=== PATIENT | female | born 1985 | race African-American/Black ===

== ENCOUNTER → 2016-08-07 | Outpatient (CLI) | payer OTHER ==
[~2016-08-07] MED LIST: MEGESTROL ACETA20 MG PO; METOPROLOL SUCC25 MG PO; METOPROLOL TART25 MG PO; PROZAC10 MG PO; PROZAC20 MG PO; XANAX0.25 MG PO; XANAX0.5 MG PO
== END | disposition home or self-care (01) ==
LOC: CDC 15:19
DX: Z01.810 Encounter for preprocedural cardiovascular examination (principal); I10 Essential (primary) hypertension
CPT/HCPCS: 93000

== ENCOUNTER 2016-08-13 09:48 | Day surgery (SDC) | payer OTHER ==
[~2016-08-13] VITALS: Ht 160 cm; Wt 83.0 kg
[2016-08-13 10:21] VITALS: BP 122/72
[2016-08-13 14:06] VITALS: BP 121/65
[2016-08-13 14:57] VITALS: BP 126/60
[2016-08-14 13:12] LABS: INTERNAL CONTROL VALID? YES
== END 2016-08-13 15:00 | disposition home or self-care (01) ==
LOC: SDC 09:48
PROVIDERS: Obstetrics & Gynecology
DX: N92.1 Excessive and frequent menstruation with irregular cycle (principal); D25.0 Submucous leiomyoma of uterus; N84.0 Polyp of corpus uteri; D50.0 Iron deficiency anemia secondary to blood loss (chronic); N94.6 Dysmenorrhea, unspecified; E28.2 Polycystic ovarian syndrome; N96 Recurrent pregnancy loss; Z80.3 Family history of malignant neoplasm of breast; F17.200 Nicotine dependence, unspecified, uncomplicated; Z88.0 Allergy status to penicillin; Z88.8 Allergy status to other drugs, medicaments and biological substances
CPT/HCPCS: 84703; 88305; J0690; J1100; J1170; J1885; J2175; J2250; J2405; J3010

== ENCOUNTER 2017-08-24 15:13 | Emergency (ER) | payer OTHER ==
[~2017-08-24] VITALS: Ht 160 cm; Wt 84.0 kg
[2017-08-24 16:39] LABS: APPEARANCE CLEAR ((CLEAR)); BILIRUBIN NEGATIVE; BLOOD NEGATIVE; COLOR YELLOW ((YELLOW)); GLUCOSE (STRIP) NEGATIVE; KETONES NEGATIVE; LEUKOCYTES NEGATIVE; NITRITE NEGATIVE; PROTEIN (STRIP) NEGATIVE; UCUL ADDED? NO; UROBILINOGEN 0.2 MG/DL (0.2-1.0)
[2017-08-24 16:44] LABS: CHLORIDE 107 mEq/L (99-109); POTASSIUM 4.5 mEq/L (3.7-5.4); SODIUM 137 mEq/L (136-147)
[2017-08-24 16:45] LABS: HEMATOCRIT 32.2 % (36.0-46.0); HEMOGLOBIN 9.2 G/DL (11.9-15.5); MCH 17.9 PG (29.0-34.0); MCHC 28.6 G/DL (30.0-36.0); MCV 62.5 FL (83-99); PLATELET COUNT 396 K/uL (156-360); RBC DIS.WIDTH-CV 19.5 % (11.8-14.6); RBC DIS.WIDTH-SD 40.8 % (39-53); RED BLOOD COUNT 5.15 M/uL (3.80-5.20); WHITE BLOOD COUNT 6.2 K/uL (4.1-10.2)
[2017-08-24 16:46] LABS: GLUCOSE 94 mg/dL (70-99)
[2017-08-24 16:50] LABS: CREATININE 0.7 mg/dL (0.6-1.3); GFR ESTIMATE (CALCULATED) > 59 mL/min/; UREA NITROGEN (BUN) 11 mg/dL (9-23)
[2017-08-24 16:58] LABS: QUANTITATIVE HCG < 4.0 MIU/ML
[2017-08-24 17:43] VITALS: BP 129/93
== END 2017-08-24 17:44 | disposition left against medical advice (07) ==
LOC: EME 15:13
PROVIDERS: Physician Assistant
DX: R10.9 Unspecified abdominal pain (principal); F17.200 Nicotine dependence, unspecified, uncomplicated
CPT/HCPCS: 80048; 81003; 84702; 85027; 99281; 99284

== ENCOUNTER 2017-12-22 13:27 | Emergency (ER) | payer OTHER ==
[~2017-12-22] VITALS: Ht 167.6 cm; Wt 86.0 kg
[2017-12-22 14:13] LABS: CHLORIDE 109 mEq/L (99-109); POTASSIUM 4.3 mEq/L (3.7-5.4); SODIUM 139 mEq/L (136-147)
[2017-12-22 14:15] LABS: GLUCOSE 94 mg/dL (70-99)
[2017-12-22 14:19] LABS: CREATININE 0.9 mg/dL (0.6-1.3); GFR ESTIMATE (CALCULATED) > 59 mL/min/; UREA NITROGEN (BUN) 10 mg/dL (9-23)
[2017-12-22 14:21] LABS: LIPASE 41 U/L (1.0-51.0)
[2017-12-22 14:23] LABS: HEMATOCRIT 32.9 % (36.0-46.0); HEMOGLOBIN 9.3 G/DL (11.9-15.5); MCH 17.3 PG (29.0-34.0); MCHC 28.3 G/DL (30.0-36.0); MCV 61.3 FL (83-99); PLATELET COUNT 374 K/uL (156-360); RBC DIS.WIDTH-CV 19.8 % (11.8-14.6); RBC DIS.WIDTH-SD 40.8 % (39-53); RED BLOOD COUNT 5.37 M/uL (3.80-5.20); WHITE BLOOD COUNT 4.1 K/uL (4.1-10.2)
[2017-12-22 14:28] LABS: QUANTITATIVE HCG < 4.0 MIU/ML
[2017-12-22 14:50] LABS: APPEARANCE CLEAR ((CLEAR)); BILIRUBIN NEGATIVE; BLOOD NEGATIVE; COLOR YELLOW ((YELLOW)); GLUCOSE (STRIP) NEGATIVE; KETONES NEGATIVE; LEUKOCYTES NEGATIVE; NITRITE NEGATIVE; PROTEIN (STRIP) NEGATIVE; SPECIFIC GRAVITY 1.021 (1.000-1.030)
[2017-12-22] MEDS ORDERED: ZOFRAN ODT4 MG PO (16:38)
[2017-12-22] MEDS ORDERED: BENTYL10 MG PO (16:38)
[2017-12-22 16:50] VITALS: BP 121/80
== END 2017-12-22 16:52 | disposition home or self-care (01) ==
LOC: EME 13:27
PROVIDERS: Nurse Practitioner Family
DX: B34.9 Viral infection, unspecified (principal); R10.13 Epigastric pain; R11.0 Nausea; R19.7 Diarrhea, unspecified; F17.200 Nicotine dependence, unspecified, uncomplicated
CPT/HCPCS: 74160; 80048; 81003; 83690; 84702; 85027; 99281; 99285; J2405; J7030